=== PATIENT | male | born 1990 | race Caucasian/White ===

== ENCOUNTER 2017-03-12 08:21 | Day surgery (SDC) | payer BC, SELFPAY ==
[2017-03-12] VITALS (21 sets, daily range): BP systolic 105–151; BP diastolic 59–109; PULSE 58–88; RESP 16–20; TEMP 36.2–36.7; O2SAT 96–100; BMI 21.9
--- NOTE | 2017-03-12 08:30 | IR_ITS ---
CARDIAC CATHETERIZATION DATE OF CATHETERIZATION:03/12/2017 1:01 PM PROCEDURES: 1. Left heart catheterization 2. Left ventriculogram 3. Selective coronary angiogram 4. Drug-eluting stent deployment to the ostial proximal LAD INDICATION FOR TEST: 1. Angina pectoris class III 2. 2 antianginal medications including Norvasc and metoprolol 3. History of myocardial infarction 4. History of coronary artery disease Informed consent was obtained prior to the procedure. COMPLICATIONS: None ESTIMATED BLOOD LOSS: Less than 10 ml. TECHNIQUE: One percent lidocaine used to anesthetize the right anterior aspect of the wrist. The right radial artery was accessed via the Seldinger technique. A 6 Cambodian sheath was placed in the right radial artery. 2.5 mg of verapamil, 800 mcg of nitroglycerin and 5000 U Heparin were given through the arterial sheath. The trap catheter was also used to perform left heart catheterization left ventriculogram and selective coronary angiogram. At the end of the procedure an additional 2000 units of heparin was administered intravenously and a JL 3.5 guide catheter was used intubate the left main artery. Using fluoroscopic guidance a choice PT extra-support wire was used to traverse the proximal LAD stenosis. A 3 mm x 30 mm resolute Kim stent was placed in the proximal segment and deployed at 18 rober reducing the stenosis to less than 10%. The ostium was not catheter should appropriately therefore an additional 3 mm x 8 mm resolute Daryn stent was deployed at 20 rober in the ostium reducing the stenosis to less than 10%. Excellent angiographic results were obtained with a total contrast amount of 20 cc. At the end of the procedure the sheath was removed good hemostasis was achieved using TR banding patient transferred to the postop holding area in stable condition ANGIOGRAPHIC RESULTS: 1. The left main artery normal 2. The left anterior descending artery has an ostial 30% stenosis followed by a proximal 90% stenosis. Immediately distal to the first septal research quality assurance analyst are 2 contiguous stents which extended throughout the mid segment. The proximal portion of the first stent has 50-60% in-stent restenosis. 3. The circumflex artery nondominant and has mild 10% stenoses 4. The right coronary artery is a dominant vessel and occluded after the RV marginal branch with the distal vessel filling via left to right collaterals 5. The [place] ventriculogram reveals mild left ventricular dilatation estimated ejection fraction 45% 6. The left ventricular end-diastolic pressure 20 mmHg IMPRESSION: 1. Critical 2 vessel coronary artery disease as described above 2. Excessive stenting of the ostial proximal LAD critical disease reduced to less than 10% with 2 drug-eluting stents 3. Mild left ventricular dysfunction and dilatation 4. Elevated LVEDP PLAN: 1. Continue Brilinta and aspirin 2. LDL less than 55 3. Patient will be kept overnight and given IV fluids in order to reduce his risk of contrast nephropathy 4. Cardiac rehabilitation 5. Avoidance of tobacco products 6. Strongly encourage patient to follow-up with his pediatric acute care unit nurse as soon as possible
[2017-03-12 09:02] LABS: Basophils # 0.1 K/mm3 (0-0.2); Eosinophils # 0.2 K/mm3 (0.0-0.4); Eosinophils % 2.2 % (0.1-12.0); Hematocrit 37.7 % (42.0-52.0); Hemoglobin 12.2 g/dL (14.1-18.0); Lymphocytes # 2.9 K/mm3 (0.7-4.5); Lymphocytes % 34.3 K/mm3 (10-50); Mean Corpuscular HGB Conc 32.5 g/dL (31.8-35.4); Mean Corpuscular Hemoglobin 27.8 pg (27.0-31.2); Mean Corpuscular Volume 85.4 fl (80-94); Mean Platelet Volume 6.8 fl (7.4-10.4); Monocytes # 0.5 K/mm3 (0.1-1.0); Monocytes % 5.8 % (1.7-9.3); Neutrophils # 4.8 K/mm3 (1.8-7.8); Neutrophils % 56.6 % (37.0-80.0); Platelet Count 423 K/mm3 (142-424); Red Blood Count 4.41 M/mm3 (4.60-6.20); Red Cell Distribution Width 12.7 % (11.5-17.5); White Blood Count 8.5 K/mm3 (4.8-10.8)
[2017-03-12 09:09] LABS: Anion Gap 9.7 mEq/L (5-15); Blood Urea Nitrogen 23 mg/dL (7-18); Carbon Dioxide 27 mmol/L (21.0-32.0); Chloride 106 mmol/L (98-107); Creatinine Clearance Estimated 26 mg/ml (0-300); Estimated Glomerular Filt Rate 20 ml/min (>60); GFR (African American) 24 ML/MIN (>60); Glucose 93 mg/dL (74-106); Potassium 3.7 mmoL/L (3.5-5.1); Sodium 139 mmol/L (136-145)
[2017-03-12 09:15] LABS: Creatinine,Serum 3.67 mg/dL (0.70-1.30)
[2017-03-12 15:17] LABS: CATHL Activated Clotting Time 261 SEC (74-125)
[2017-03-12 15:18] LABS: CATHL Activated Clotting Time 262 SEC (74-125)
--- NOTE | 2017-03-12 21:51 | PC.NURSE ---
UPON RECEIVING PT, FOUND HIM TO BE ALERT AND ORIENTED X4. R RADIAL CATH SITE DRESSING C/D/I, RADIAL PULSES EQUAL WITH < 3 SEC CAP REFILL BILATERALLY. NO C/O ANY PAIN, PT IS INDEPDENT. DISCUSSED SAFETY AND CALL LIGHT USE. PT AGREED TO RING FOR ANY NEEDS. NS INFUSING AT 100ml/hr WITH NO PROBLEMS IDENTIFIED, SITE APPEARS W/O ERYTHEMA OR INFILTRATION. WILL CONTINUE TO MONITOR.
[2017-03-13] VITALS (7 sets, daily range): BP systolic 106–114; BP diastolic 55–78; PULSE 50–77; RESP 17–18; TEMP 36.2–36.8; O2SAT 97–99
--- NOTE | 2017-03-13 01:02 | PC.NURSE ---
In to check pt, he is sleeping with even and unlabored respirations. cath site dressing remains c/d/i. No s/s of any distress, will continue to monitor.
--- NOTE | 2017-03-13 06:31 | PC.NURSE ---
Pt rested well with no problems identified. iv fluids infusing well with no s/s of erythema or infiltration, vss and close in number. No c/o chest pain or any pain. r radial site dressing remains c/d/i. pt remained safe this shift
[2017-03-13 08:12] LABS: Anion Gap 10.4 mEq/L (5-15); Blood Urea Nitrogen 30 mg/dL (7-18); Carbon Dioxide 23 mmol/L (21.0-32.0); Chloride 112 mmol/L (98-107); Creatinine Clearance Estimated 26 mg/ml (0-300); Estimated Glomerular Filt Rate 19 ml/min (>60); GFR (African American) 24 ML/MIN (>60); Glucose 108 mg/dL (74-106); Potassium 4.4 mmoL/L (3.5-5.1); Sodium 141 mmol/L (136-145)
[2017-03-13 08:22] LABS: Creatinine,Serum 3.75 mg/dL (0.70-1.30)
--- NOTE | 2017-03-27 11:02 | PC.NURSE ---
post procedure call made, pt did not answer, message left for pt to call the hospital with any questions/concerns
== END 2017-03-13 10:00 | disposition home or self-care (01) ==
PROVIDERS: Family Provider Family Medicine; PCP Family Medicine; Visit Provider Internal Medicine
DX: I25.119 Atherosclerotic heart disease of native coronary artery with unspecified angina pectoris (principal); Z72.0 Tobacco use; I25.2 Old myocardial infarction
CPT/HCPCS: 80048; 85025; 85347; 92928; 93458; 99152; C1725; C1769; C1876; C9600; J1644; Q9967

== ENCOUNTER → 2017-03-19 12:28 | Outpatient (CLI) | payer BC, SELFPAY | PROVIDERS: Family Provider Family Medicine; PCP Family Medicine; Visit Provider Physician Assistant | DX: E78.2 Mixed hyperlipidemia (principal); I51.5 Myocardial degeneration; I25.118 Atherosclerotic heart disease of native coronary artery with other forms of angina pectoris; R94.31 Abnormal electrocardiogram [ECG] [EKG]; R00.1 Bradycardia, unspecified; I25.2 Old myocardial infarction; I45.10 Unspecified right bundle-branch block; N05.9 Unspecified nephritic syndrome with unspecified morphologic changes; Z95.5 Presence of coronary angioplasty implant and graft ==

== ENCOUNTER 2017-03-25 11:04 | Outpatient (RCR) | payer BC, SELFPAY | END 2017-03-25 11:05 | disposition home or self-care (01) | LOC: PT 11:04 | PROVIDERS: Family Provider Family Medicine; PCP Family Medicine; Visit Provider Internal Medicine | DX: Z95.5 Presence of coronary angioplasty implant and graft (principal); I25.118 Atherosclerotic heart disease of native coronary artery with other forms of angina pectoris | CPT/HCPCS: 93798 ==

== ENCOUNTER → 2017-05-07 13:33 | Outpatient (CLI) | payer BC, SELFPAY ==
[2017-05-07 13:39] LABS: Microscopic, Urine URINE MICROSCOPIC (MICROSCOPIC)
[2017-05-07 13:59] LABS: Basophils # 0.1 K/mm3 (0-0.2); Basophils % 0.7 % (0.1-2.0); Eosinophils # 0.3 K/mm3 (0.0-0.4); Eosinophils % 2.9 % (0.1-12.0); Hematocrit 32.5 % (42.0-52.0); Hemoglobin 10.7 g/dL (14.1-18.0); Lymphocytes # 2.5 K/mm3 (0.7-4.5); Lymphocytes % 27.2 K/mm3 (10-50); Mean Corpuscular HGB Conc 32.8 g/dL (31.8-35.4); Mean Corpuscular Hemoglobin 28.2 pg (27.0-31.2); Mean Platelet Volume 7.7 fl (7.4-10.4); Monocytes # 0.5 K/mm3 (0.1-1.0); Monocytes % 5.5 % (1.7-9.3); Neutrophils # 5.9 K/mm3 (1.8-7.8); Neutrophils % 63.7 % (37.0-80.0); Platelet Count 298 K/mm3 (142-424); Red Blood Count 3.77 M/mm3 (4.60-6.20); Red Cell Distribution Width 13.1 % (11.5-17.5); White Blood Count 9.2 K/mm3 (4.8-10.8)
[2017-05-07 14:07] LABS: Alanine Aminotransferase 32 U/L (12-78); Albumin Level 2.6 gm/dL (3.4-5.0); Alkaline Phosphatase 77 U/L (46-116); Anion Gap 11.2 mEq/L (5-15); Aspartate Amino Transferase 44 U/L (15-37); Bilirubin,Direct 0.1 mg/dL (0.0-0.2); Bilirubin,Total 0.2 mg/dL (0.2-1.0); Blood Urea Nitrogen 26 mg/dL (7-18); Carbon Dioxide 25 mmol/L (21.0-32.0); Chloride 109 mmol/L (98-107); Chol/HDL Ratio 5.5 (1-3.5); Cholesterol 244 mg/dL (140-200); Estimated Glomerular Filt Rate 19 ml/min (>60); GFR (African American) 24 ML/MIN (>60); Glucose 74 mg/dL (74-106); HDL Cholesterol 44 mg/dL (27-67); LDL Cholesterol 184 mg/dL (0-130); Potassium 4.2 mmoL/L (3.5-5.1); Sodium 141 mmol/L (136-145); Total Protein,Serum 5.9 gm/dL (6.4-8.2); Triglycerides 81 mg/dL (30-200); VLDL Cholesterol 16 mg/dL (0-40)
[2017-05-07 14:13] LABS: Appearance,Urine CLEAR (Clear); Bilirubin,Urine Negative (Negative); Blood, Urine 2+ (Negative); Color,Urine YELLOW (Yellow); Glucose,Urine (UA) Negative (Negative); Ketones,Urine Negative (Negative); Leukocyte Esterase,Urine Negative (Negative); Nitrate,Urine Negative (Negative); Protein,Urine 3+ (Negative); Urobilinogen,Urine 0.2 EU/dl (0.2)
[2017-05-07 14:22] LABS: Creatinine,Serum 3.76 mg/dL (0.70-1.30)
[2017-05-07 14:41] LABS: Creatinine,Urine Random 57 mg/dL (20-320)
[2017-05-07 14:42] LABS: Bacteria,Urine 1+ /lpf; Squamous Epithelial Cell,Urine Occasional #/hpf (0-5)
[2017-05-07 15:31] LABS: Total Protein,Urine Random 400.2 mg/dL (0.0-11.9)
[2017-05-07 15:35] LABS: Albumin Level 2.6 gm/dL (3.4-5.0); Anion Gap 11.2 mEq/L (5-15); Blood Urea Nitrogen 26 mg/dL (7-18); Calcium 8.3 mg/dL (8.5-10.1); Carbon Dioxide 26 mmol/L (21.0-32.0); Chloride 109 mmol/L (98-107); Estimated Glomerular Filt Rate 19 ml/min (>60); GFR (African American) 23 ML/MIN (>60); Glucose 71 mg/dL (74-106); Phosphorous 3.4 mg/dL (2.4-4.9); Potassium 4.2 mmoL/L (3.5-5.1); Sodium 142 mmol/L (136-145)
[2017-05-08 11:54] LABS: Vitamin D 25 Hydroxy 13.2 ng/mL (30.0-100.0)
[2017-05-09 07:04] LABS: Parathyroid Hormone Intact 132 pg/mL (15-65)
== END ==
PROVIDERS: Internal Medicine Nephrology; PCP Family Medicine; Visit Provider Internal Medicine
DX: E78.2 Mixed hyperlipidemia (principal); I15.1 Hypertension secondary to other renal disorders; I25.118 Atherosclerotic heart disease of native coronary artery with other forms of angina pectoris; N05.9 Unspecified nephritic syndrome with unspecified morphologic changes
CPT/HCPCS: 36415; 80048; 80061; 80069; 80076; 81001; 82570; 82652; 83970; 84155; 85025

== ENCOUNTER → 2017-05-08 14:33 | Outpatient (POV) | payer BC, SELFPAY | PROVIDERS: Family Provider Family Medicine; PCP Family Medicine; Visit Provider Internal Medicine Nephrology | DX: Z00.00 Encounter for general adult medical examination without abnormal findings (principal) ==

== ENCOUNTER → 2018-01-12 11:54 | Outpatient (CLI) | payer BC, SELFPAY ==
[2018-01-12 11:59] LABS: Microscopic, Urine URINE MICROSCOPIC (MICROSCOPIC)
[2018-01-12 12:16] LABS: Appearance,Urine CLEAR (Clear); Bilirubin,Urine Negative (Negative); Blood, Urine 2+ (Negative); Color,Urine YELLOW (Yellow); Glucose,Urine (UA) Negative (Negative); Ketones,Urine Negative (Negative); Leukocyte Esterase,Urine Negative (Negative); Nitrate,Urine Negative (Negative); Protein,Urine 3+ (Negative)
[2018-01-12 12:20] LABS: Basophils % 0.6 % (0.1-2.0); Eosinophils # 0.2 K/mm3 (0.0-0.4); Eosinophils % 3.2 % (0.1-12.0); Hemoglobin 12.8 g/dL (14.1-18.0); Lymphocytes # 2.8 K/mm3 (0.7-4.5); Lymphocytes % 40.2 K/mm3 (10-50); Mean Corpuscular Hemoglobin 27.3 pg (27.0-31.2); Mean Corpuscular Volume 85.3 fl (80-94); Mean Platelet Volume 7.1 fl (7.4-10.4); Monocytes # 0.4 K/mm3 (0.1-1.0); Monocytes % 5.5 % (1.7-9.3); Neutrophils # 3.5 K/mm3 (1.8-7.8); Neutrophils % 50.5 % (37.0-80.0); Platelet Count 342 K/mm3 (142-424); Red Blood Count 4.68 M/mm3 (4.60-6.20); Red Cell Distribution Width 13.6 % (11.5-17.5); White Blood Count 6.9 K/mm3 (4.8-10.8)
[2018-01-12 13:31] LABS: Squamous Epithelial Cell,Urine Occasional #/hpf (0-5); WBC,Urine Occasional #/hpf (0-3)
[2018-01-12 19:36] LABS: Albumin Level 3.2 gm/dL (3.4-5.0); Anion Gap 12.1 mEq/L (5-15); Blood Urea Nitrogen 24 mg/dL (7-18); Calcium 8.5 mg/dL (8.5-10.1); Carbon Dioxide 29 mmol/L (21.0-32.0); Chloride 106 mmol/L (98-107); Creatinine,Serum 3.39 mg/dL (0.70-1.30); Estimated Glomerular Filt Rate 22 ml/min (>60); GFR (African American) 26 ML/MIN (>60); Glucose 90 mg/dL (74-106); Magnesium 1.9 mg/dL (1.4-2.2); Phosphorous 3.3 mg/dL (2.4-4.9); Potassium 5.1 mmoL/L (3.5-5.1); Sodium 142 mmol/L (136-145)
== END ==
PROVIDERS: Visit Provider Internal Medicine Nephrology
DX: Z94.0 Kidney transplant status (principal)
CPT/HCPCS: 36415; 80069; 81001; 83735; 85025

== ENCOUNTER → 2018-06-15 14:14 | Outpatient (CLI) | payer BC, SELFPAY ==
[2018-06-15 14:43] LABS: Basophils # 0.1 K/mm3 (0-0.2); Basophils % 0.6 % (0.1-2.0); Eosinophils # 0.1 K/mm3 (0.0-0.4); Eosinophils % 0.4 % (0.1-12.0); Hematocrit 37.4 % (42.0-52.0); Hemoglobin 13.3 g/dL (14.1-18.0); Lymphocytes # 4.4 K/mm3 (0.7-4.5); Lymphocytes % 29.4 % (10-50); Mean Corpuscular HGB Conc 35.5 g/dL (31.8-35.4); Mean Corpuscular Hemoglobin 28.2 pg (27.0-31.2); Mean Corpuscular Volume 79.3 fl (80-94); Mean Platelet Volume 7.2 fl (7.4-10.4); Monocytes # 0.8 K/mm3 (0.1-1.0); Monocytes % 5.4 % (1.7-9.3); Neutrophils # 9.6 K/mm3 (1.8-7.8); Neutrophils % 64.3 % (37.0-80.0); Platelet Count 357 K/mm3 (142-424); Red Blood Count 4.71 M/mm3 (4.60-6.20); Red Cell Distribution Width 13.1 % (11.5-17.5); White Blood Count 14.9 K/mm3 (4.8-10.8)
[2018-06-15 15:24] LABS: Albumin Level 3.6 gm/dL (3.4-5.0); Anion Gap 17.4 mEq/L (5-15); Blood Urea Nitrogen 34 mg/dL (7-18); Calcium 9.3 mg/dL (8.5-10.1); Carbon Dioxide 22 mmol/L (21.0-32.0); Chloride 107 mmol/L (98-107); Estimated Glomerular Filt Rate 18 ml/min (>60); GFR (African American) 22 ML/MIN (>60); Glucose 128 mg/dL (74-106); Magnesium 1.7 mg/dL (1.4-2.2); Phosphorous 3.8 mg/dL (2.4-4.9); Potassium 3.4 mmoL/L (3.5-5.1); Sodium 143 mmol/L (136-145)
[2018-06-15 15:42] LABS: Creatinine,Serum 4.03 mg/dL (0.70-1.30)
== END ==
PROVIDERS: Visit Provider Internal Medicine Nephrology
DX: Z94.0 Kidney transplant status (principal); E78.5 Hyperlipidemia, unspecified; N18.9 Chronic kidney disease, unspecified; I25.10 Atherosclerotic heart disease of native coronary artery without angina pectoris
CPT/HCPCS: 36415; 80069; 83735; 85025

== ENCOUNTER → 2018-09-23 14:15 | Outpatient (CLI) | payer BC, SELFPAY ==
[2018-09-23 14:23] LABS: Microscopic, Urine URINE MICROSCOPIC (MICROSCOPIC)
[2018-09-23 14:37] LABS: Appearance,Urine CLEAR (Clear); Bilirubin,Urine Negative (Negative); Blood, Urine 1+ (Negative); Color,Urine YELLOW (Yellow); Glucose,Urine (UA) Negative (Negative); Ketones,Urine Negative (Negative); Leukocyte Esterase,Urine Negative (Negative); Nitrate,Urine Negative (Negative); Protein,Urine 3+ (Negative); Urobilinogen,Urine 0.2 EU/dl (0.2)
[2018-09-23 14:49] LABS: Squamous Epithelial Cell,Urine Occasional #/hpf (0-5); WBC,Urine Occasional #/hpf (0-3)
[2018-09-23 14:50] LABS: Bacteria,Urine Trace /lpf
[2018-09-23 14:59] LABS: Basophils # 0.1 K/mm3 (0-0.2); Basophils % 0.7 % (0.1-2.0); Eosinophils # 0.1 K/mm3 (0.0-0.4); Eosinophils % 1.2 % (0.1-12.0); Hematocrit 38.4 % (42.0-52.0); Hemoglobin 12.1 g/dL (14.1-18.0); Lymphocytes # 2.4 K/mm3 (0.7-4.5); Lymphocytes % 27.8 % (10-50); Mean Corpuscular HGB Conc 31.6 g/dL (31.8-35.4); Mean Corpuscular Hemoglobin 25.6 pg (27.0-31.2); Mean Corpuscular Volume 80.8 fl (80-94); Mean Platelet Volume 6.7 fl (7.4-10.4); Monocytes # 0.4 K/mm3 (0.1-1.0); Monocytes % 5.1 % (1.7-9.3); Neutrophils # 5.5 K/mm3 (1.8-7.8); Neutrophils % 65.2 % (37.0-80.0); Platelet Count 324 K/mm3 (142-424); Red Blood Count 4.75 M/mm3 (4.60-6.20); Red Cell Distribution Width 13.2 % (11.5-17.5); White Blood Count 8.5 K/mm3 (4.8-10.8)
[2018-09-23 16:44] LABS: Albumin Level 3.2 gm/dL (3.4-5.0); Anion Gap 14.6 mEq/L (5-15); Blood Urea Nitrogen 28 mg/dL (7-18); Carbon Dioxide 26 mmol/L (21.0-32.0); Chloride 106 mmol/L (98-107); Estimated Glomerular Filt Rate 19 ml/min (>60); GFR (African American) 23 ML/MIN (>60); Glucose 134 mg/dL (74-106); Magnesium 1.9 mg/dL (1.4-2.2); Phosphorous 2.5 mg/dL (2.4-4.9); Potassium 4.6 mmoL/L (3.5-5.1); Sodium 142 mmol/L (136-145)
[2018-09-23 17:55] LABS: Creatinine,Serum 3.86 mg/dL (0.70-1.30)
== END ==
PROVIDERS: Visit Provider Internal Medicine Nephrology
DX: Z94.0 Kidney transplant status (principal)
CPT/HCPCS: 36415; 80069; 81001; 83735; 85025

== ENCOUNTER → 2018-12-22 14:35 | Outpatient (CLI) | payer BC, SELFPAY ==
[2018-12-22 15:06] LABS: Basophils # 0.1 K/mm3 (0-0.2); Basophils % 1.2 % (0.1-2.0); Eosinophils # 0.1 K/mm3 (0.0-0.4); Eosinophils % 1.6 % (0.1-12.0); Hematocrit 40.1 % (42.0-52.0); Hemoglobin 12.6 g/dL (14.1-18.0); Lymphocytes # 3.7 K/mm3 (0.7-4.5); Lymphocytes % 53.8 % (10-50); Mean Corpuscular HGB Conc 31.4 g/dL (31.8-35.4); Mean Corpuscular Hemoglobin 26.6 pg (27.0-31.2); Mean Corpuscular Volume 84.7 fl (80-94); Mean Platelet Volume 7.6 fl (7.4-10.4); Monocytes # 0.4 K/mm3 (0.1-1.0); Monocytes % 6.2 % (1.7-9.3); Neutrophils # 2.6 K/mm3 (1.8-7.8); Neutrophils % 37.2 % (37.0-80.0); Platelet Count 292 K/mm3 (142-424); Red Blood Count 4.74 M/mm3 (4.60-6.20); Red Cell Distribution Width 14.2 % (11.5-17.5); White Blood Count 6.9 K/mm3 (4.8-10.8)
[2018-12-22 15:08] LABS: MANUAL DIFFERENTIAL MANUAL DIFFERENTIAL (MANUAL DIFF)
[2018-12-22 15:50] LABS: Eosinophils % 2 % (0-3); Hypochromasia 1+; Lymphocytes % 57 % (10-50); Monocytes % 5 % (2-9); Neutrophils % 36 % (42-76); Platelet Estimate Normal; Total Cells Counted 100
[2018-12-22 16:17] LABS: Albumin Level 3.6 gm/dL (3.4-5.0); Anion Gap 11.5 mEq/L (5-15); Blood Urea Nitrogen 29 mg/dL (7-18); Carbon Dioxide 27 mmol/L (21.0-32.0); Chloride 107 mmol/L (98-107); Estimated Glomerular Filt Rate 17 ml/min (>60); GFR (African American) 20 ML/MIN (>60); Glucose 81 mg/dL (74-106); Magnesium 1.9 mg/dL (1.4-2.2); Phosphorous 3.6 mg/dL (2.4-4.9); Potassium 4.5 mmoL/L (3.5-5.1); Sodium 141 mmol/L (136-145)
[2018-12-22 17:02] LABS: Creatinine,Serum 4.21 mg/dL (0.70-1.30)
== END ==
PROVIDERS: Visit Provider Internal Medicine Nephrology
DX: Z94.0 Kidney transplant status (principal)
CPT/HCPCS: 36415; 80069; 83735; 85007; 85025

== ENCOUNTER → 2019-04-22 15:54 | Outpatient (CLI) | payer BC, SELFPAY ==
--- NOTE | 2019-04-22 15:57 | XR_ITS ---
PROCEDURE: XR CHEST 2V CLINICAL HISTORY: COUGH Cough and congestion COMPARISON: CXR CHEST(2 VIEWS-NOT PORTABLE) from 09/01/2013 FINDINGS: The cardiomediastinal silhouette and pulmonary vascularity are within normal limits. The lungs are clear without infiltrates, suspicious nodules, or pleural effusions. There is minimal midthoracic curvature convex right. Coronary artery stent or calcification noted anteriorly IMPRESSION: No acute findings. Dictated by: Zhou Raya MD 04/22/2019 17:12 Electronically signed by Zhou Raya MD in [place] 04/22/2019 17:12
== END ==
PROVIDERS: PCP Physician Assistant; Visit Provider Physician Assistant
DX: R05 Cough (principal)
CPT/HCPCS: 71046

== ENCOUNTER → 2019-11-27 10:47 | Outpatient (CLI) | payer BC, SELFPAY ==
[2019-11-27 11:07] LABS: Basophils # 0.1 K/mm3 (0-0.2); Basophils % 1.2 % (0.1-2.0); Eosinophils # 0.2 K/mm3 (0.0-0.4); Eosinophils % 2.8 % (0.1-12.0); Hematocrit 31.8 % (42.0-52.0); Hemoglobin 10.7 g/dL (14.1-18.0); Lymphocytes # 3.3 K/mm3 (0.7-4.5); Mean Corpuscular HGB Conc 33.6 g/dL (31.8-35.4); Mean Corpuscular Hemoglobin 29.5 pg (27.0-31.2); Mean Corpuscular Volume 87.9 fl (80-94); Mean Platelet Volume 7.6 fl (7.4-10.4); Monocytes # 0.4 K/mm3 (0.1-1.0); Monocytes % 6.2 % (1.7-9.3); Neutrophils # 2.6 K/mm3 (1.8-7.8); Neutrophils % 39.8 % (37.0-80.0); Platelet Count 265 K/mm3 (142-424); Red Blood Count 3.62 M/mm3 (4.60-6.20); Red Cell Distribution Width 13.7 % (11.5-17.5); White Blood Count 6.5 K/mm3 (4.8-10.8)
[2019-11-27 11:13] LABS: MANUAL DIFFERENTIAL MANUAL DIFFERENTIAL (MANUAL DIFF)
[2019-11-27 15:06] LABS: Chloride 110 mmol/L (98-107)
[2019-11-27 15:07] LABS: Albumin Level 3.2 g/dl (3.5-5.0); Potassium 4.5 mmoL/L (3.5-5.1); Sodium 139 mmol/L (136-145)
[2019-11-27 15:09] LABS: Blood Urea Nitrogen 75 mg/dl (9-20); Estimated Glomerular Filt Rate 6 ml/min (>60); GFR (African American) 7 ML/MIN (>60)
[2019-11-27 15:10] LABS: Anion Gap 17.5 mEq/L (5-15); Carbon Dioxide 16 mmol/L (22.0-30.0); Glucose 117 mg/dl (74-100); Magnesium 1.8 mg/dl (1.6-2.3); Phosphorous 7.6 mg/dl (2.5-4.5)
[2019-11-27 15:19] LABS: Lymphocytes % 50 % (10-50); Monocytes % 5 % (2-9); Neutrophils % 45 % (42-76); Platelet Estimate Normal; RBC Morphology Normal; Total Cells Counted 100
[2019-11-27 15:43] LABS: Calcium 6.7 mg/dl (8.4-10.2)
== END ==
PROVIDERS: Visit Provider Internal Medicine Nephrology
DX: Z94.0 Kidney transplant status (principal)
CPT/HCPCS: 36415; 80069; 83735; 85007; 85025

== ENCOUNTER → 2019-12-21 13:15 | Outpatient (CLI) | payer BC, SELFPAY ==
--- NOTE | 2019-12-21 13:16 | CA_ITS ---
APPROVED REPORT EXAM: Comprehensive 2D, Doppler, and color-flow Echocardiogram Senior Clinical Project Manager: Linda Hirsch RDCS Ht: 5 ft 6 in Wt: 150lbs BSA: 1.77 BP: 123/79 mmHg Indications: CAD CM M-Mode Dimensions RVDd 3.00 cm (0.9-2.6) LA Diam 3.50 cm (1.9-4.0) LVDd 5.70 cm (3.5-5.7) Ao Diam 3.30 cm (2.0-3.7) LVDs 3.80 cm (3.5-5.7) AV Cusp 2.40 cm (1.5-2.6) IVSd 1.10 cm (0.6-1.1) PWd 1.20 cm (0.6-1.1) EF (Teich) 61.30% FS 33.30% EDV (Teich) 160.00 mL ESV (Teich) 62.00 mL LV Diastology E/A Ratio 1.4 MED E' 7.51 (< 7 cm/sec) E'/MED E' Ratio 7.50 (>14) LAT E' 11.60 (<10 cm/sec) E/LAT E' Ratio 4.90 (>14) Mitral Valve MV E Max Conrado. 56.60 (40-130 cm/s) MV A Velocity 39.80 (40-130 cm/s) E/A Ratio 1.40 Left Ventricle Left atrium is normal size, left ventricle is normal size, there is no concentric left ventricular hypertrophy, visually estimated ejection fraction of 55% with no regional wall motion abnormality. Diastolic parameters are within normal range. Right Ventricle Right atrium and right ventricular normal size and contractility. Aortic Valve Aortic valve is grossly normal, there is no aortic stenosis or aortic insufficiency. Mitral Valve Mitral valve is minimally thickened, there is no mitral stenosis, there is mild mitral regurgitation. Tricuspid Valve Tricuspid valve is grossly normal, there is mild tricuspid regurgitation, tricuspid regurgitation jet velocity is inadequate for calculation of the right ventricular systolic pressure. Pulmonic Valve Pulmonic valve is poorly visualized. Great Vessels Aortic root is normal size. Pericardium No significant pericardial effusion noted. Conclusion 1. Normal left ventricular size, preserved left ventricular systolic function, visually estimated ejection fraction 55% with no regional wall motion abnormality, diastolic parameters are within normal range. 2. Mild mitral and tricuspid regurgitation. 3. No significant pericardial effusion noted. Electronically signed by : Jack Whitman, 12/21/2019 20:40:34
== END ==
PROVIDERS: PCP Family Medicine; Visit Provider Internal Medicine
DX: R94.31 Abnormal electrocardiogram [ECG] [EKG] (principal); I10 Essential (primary) hypertension; I25.10 Atherosclerotic heart disease of native coronary artery without angina pectoris; I25.2 Old myocardial infarction; I25.5 Ischemic cardiomyopathy; I45.10 Unspecified right bundle-branch block; N05.9 Unspecified nephritic syndrome with unspecified morphologic changes; E78.5 Hyperlipidemia, unspecified; Z95.5 Presence of coronary angioplasty implant and graft
CPT/HCPCS: 93306

== ENCOUNTER → 2020-02-16 12:10 | Outpatient (CLI) | payer BC, SELFPAY ==
[2020-02-16 12:17] LABS: Microscopic, Urine URINE MICROSCOPIC (MICROSCOPIC)
[2020-02-16 12:34] LABS: Appearance,Urine CLEAR (Clear); Bilirubin,Urine Negative (Negative); Blood, Urine TRACE-I (Negative); Color,Urine YELLOW (Yellow); Glucose,Urine (UA) Negative (Negative); Ketones,Urine Negative (Negative); Leukocyte Esterase,Urine Negative (Negative); Nitrate,Urine Negative (Negative); Protein,Urine 3+ (Negative); Specific Gravity, Urine >= 1.030 (1.005-1.030); Urobilinogen,Urine 0.2 EU/dl (0.2)
[2020-02-16 12:36] LABS: Basophils # 0.1 K/mm3 (0-0.2); Basophils % 0.6 % (0.1-2.0); Eosinophils # 0.1 K/mm3 (0.0-0.4); Eosinophils % 1.1 % (0.1-12.0); Hematocrit 33.6 % (42.0-52.0); Hemoglobin 11.1 g/dL (14.1-18.0); Lymphocytes # 0.3 K/mm3 (0.7-4.5); Lymphocytes % 3.8 % (10-50); Mean Corpuscular HGB Conc 33.1 g/dL (31.8-35.4); Mean Corpuscular Hemoglobin 30.9 pg (27.0-31.2); Mean Corpuscular Volume 93.5 fl (80-94); Monocytes # 0.1 K/mm3 (0.1-1.0); Monocytes % 1.5 % (1.7-9.3); Neutrophils # 7.9 K/mm3 (1.8-7.8); Neutrophils % 92.9 % (37.0-80.0); Platelet Count 273 K/mm3 (142-424); Red Blood Count 3.59 M/mm3 (4.60-6.20); Red Cell Distribution Width 16.1 % (11.5-17.5); White Blood Count 8.5 K/mm3 (4.8-10.8)
[2020-02-16 12:47] LABS: MANUAL DIFFERENTIAL MANUAL DIFFERENTIAL (MANUAL DIFF)
[2020-02-16 13:35] LABS: Lymphocytes % 7 % (10-50); Monocytes % 3 % (2-9); Neutrophils % 90 % (42-76); Platelet Estimate Normal; RBC Morphology Normal; Total Cells Counted 100
[2020-02-16 15:59] LABS: Albumin Level 3.5 g/dl (3.5-5.0); Chloride 110 mmol/L (98-107); Potassium 5.2 mmoL/L (3.5-5.1); Sodium 139 mmol/L (136-145)
[2020-02-16 16:02] LABS: Anion Gap 12.2 mEq/L (5-15); Blood Urea Nitrogen 17 mg/dl (9-20); Calcium 9.1 mg/dl (8.4-10.2); Carbon Dioxide 22 mmol/L (22.0-30.0); Estimated Glomerular Filt Rate 65 ml/min (>60); GFR (African American) 78 ML/MIN (>60); Glucose 106 mg/dl (74-100); Phosphorous 2.7 mg/dl (2.5-4.5)
[2020-02-16 16:03] LABS: Magnesium 1.6 mg/dl (1.6-2.3)
== END ==
PROVIDERS: Visit Provider Internal Medicine Nephrology
DX: Z94.0 Kidney transplant status (principal)
CPT/HCPCS: 36415; 80069; 81001; 83735; 85007; 85025

== ENCOUNTER → 2020-04-18 13:21 | Outpatient (CLI) | payer BC, SELFPAY ==
[2020-04-18 13:24] LABS: Microscopic, Urine URINE MICROSCOPIC (MICROSCOPIC)
[2020-04-18 13:51] LABS: Appearance,Urine CLEAR (Clear); Bilirubin,Urine Negative (Negative); Blood, Urine TRACE-I (Negative); Color,Urine YELLOW (Yellow); Glucose,Urine (UA) Negative (Negative); Ketones,Urine Negative (Negative); Leukocyte Esterase,Urine Negative (Negative); Nitrate,Urine Negative (Negative); Protein,Urine 3+ (Negative); Specific Gravity, Urine 1.025 (1.005-1.030); Urobilinogen,Urine 0.2 EU/dl (0.2)
[2020-04-18 14:00] LABS: Squamous Epithelial Cell,Urine Occasional #/hpf (0-5)
[2020-04-18 14:18] LABS: Basophils # 0.1 K/mm3 (0-0.2); Eosinophils % 0.5 % (0.1-12.0); Hematocrit 34.2 % (42.0-52.0); Hemoglobin 11.4 g/dL (14.1-18.0); Lymphocytes # 0.5 K/mm3 (0.7-4.5); Mean Corpuscular HGB Conc 33.3 g/dL (31.8-35.4); Mean Corpuscular Hemoglobin 30.8 pg (27.0-31.2); Mean Corpuscular Volume 92.5 fl (80-94); Mean Platelet Volume 7.2 fl (7.4-10.4); Monocytes # 0.1 K/mm3 (0.1-1.0); Monocytes % 5.6 % (1.7-9.3); Neutrophils % 63.9 % (37.0-80.0); Platelet Count 329 K/mm3 (142-424); Red Cell Distribution Width 14.1 % (11.5-17.5)
[2020-04-18 14:36] LABS: White Blood Count 1.7 K/mm3 (4.8-10.8)
[2020-04-18 15:32] LABS: Albumin Level 3.7 g/dl (3.5-5.0); Anion Gap 9.7 mEq/L (5-15); Blood Urea Nitrogen 14 mg/dl (9-20); Calcium 9.3 mg/dl (8.4-10.2); Carbon Dioxide 25 mmol/L (22.0-30.0); Chloride 108 mmol/L (98-107); Estimated Glomerular Filt Rate 79 ml/min (>60); GFR (African American) 95 ML/MIN (>60); Glucose 104 mg/dl (74-100); Magnesium 1.5 mg/dl (1.6-2.3); Phosphorous 3.4 mg/dl (2.5-4.5); Potassium 4.7 mmoL/L (3.5-5.1); Sodium 138 mmol/L (136-145)
== END ==
PROVIDERS: Visit Provider Internal Medicine Nephrology
DX: Z94.0 Kidney transplant status (principal)
CPT/HCPCS: 36415; 80069; 81001; 83735; 85025

== ENCOUNTER → 2020-08-14 15:40 | Outpatient (CLI) | payer BC, SELFPAY ==
[2020-08-14 15:46] LABS: Microscopic, Urine URINE MICROSCOPIC (MICROSCOPIC)
[2020-08-14 16:51] LABS: Appearance,Urine CLEAR (Clear); Bilirubin,Urine Negative (Negative); Blood, Urine TRACE-I (Negative); Color,Urine YELLOW (Yellow); Glucose,Urine (UA) Negative (Negative); Ketones,Urine Negative (Negative); Leukocyte Esterase,Urine Negative (Negative); Nitrate,Urine Negative (Negative); Protein,Urine 3+ (Negative); Specific Gravity, Urine >= 1.030 (1.005-1.030); Urobilinogen,Urine 0.2 EU/dl (0.2)
[2020-08-14 16:57] LABS: Basophils % 0.9 % (0.1-2.0); Eosinophils # 0.1 K/mm3 (0.0-0.4); Eosinophils % 2.1 % (0.1-12.0); Hematocrit 35.3 % (42.0-52.0); Lymphocytes # 0.9 K/mm3 (0.7-4.5); Lymphocytes % 17.5 % (10-50); Mean Corpuscular HGB Conc 33.8 g/dL (31.8-35.4); Mean Corpuscular Hemoglobin 30.2 pg (27.0-31.2); Mean Corpuscular Volume 89.3 fl (80-94); Mean Platelet Volume 7.5 fl (7.4-10.4); Monocytes # 0.4 K/mm3 (0.1-1.0); Monocytes % 8.5 % (1.7-9.3); Neutrophils # 3.5 K/mm3 (1.8-7.8); Platelet Count 263 K/mm3 (142-424); Red Blood Count 3.96 M/mm3 (4.60-6.20); Red Cell Distribution Width 13.8 % (11.5-17.5); White Blood Count 4.9 K/mm3 (4.8-10.8)
[2020-08-14 17:19] LABS: Chloride 108 mmol/L (98-107); Sodium 139 mmol/L (136-145)
[2020-08-14 17:20] LABS: Albumin Level 3.6 g/dl (3.5-5.0); Potassium 4.4 mmoL/L (3.5-5.1)
[2020-08-14 17:22] LABS: Anion Gap 9.4 mEq/L (5-15); Blood Urea Nitrogen 20 mg/dl (9-20); Carbon Dioxide 26 mmol/L (22.0-30.0); Estimated Glomerular Filt Rate 71 ml/min (>60); GFR (African American) 86 ML/MIN (>60)
[2020-08-14 17:23] LABS: Calcium 8.8 mg/dl (8.4-10.2); Glucose 91 mg/dl (74-100); Magnesium 1.6 mg/dl (1.6-2.3)
== END ==
PROVIDERS: Visit Provider Internal Medicine Nephrology
DX: Z94.0 Kidney transplant status (principal); Z51.81 Encounter for therapeutic drug level monitoring
CPT/HCPCS: 36415; 80069; 81001; 83735; 85025

== ENCOUNTER → 2020-10-31 16:09 | Outpatient (CLI) | payer BC, SELFPAY ==
[2020-10-31 16:52] LABS: Basophils # 0.1 K/mm3 (0-0.2); Basophils % 1.7 % (0.1-2.0); Eosinophils # 0.2 K/mm3 (0.0-0.4); Eosinophils % 3.3 % (0.1-12.0); Hematocrit 42.3 % (42.0-52.0); Hemoglobin 14.3 g/dL (14.1-18.0); Lymphocytes # 1.1 K/mm3 (0.7-4.5); Lymphocytes % 19.6 % (10-50); Mean Corpuscular HGB Conc 33.9 g/dL (31.8-35.4); Mean Corpuscular Hemoglobin 29.8 pg (27.0-31.2); Mean Corpuscular Volume 87.9 fl (80-94); Mean Platelet Volume 7.7 fl (7.4-10.4); Monocytes # 0.4 K/mm3 (0.1-1.0); Monocytes % 6.8 % (1.7-9.3); Neutrophils # 3.8 K/mm3 (1.8-7.8); Neutrophils % 68.5 % (37.0-80.0); Platelet Count 311 K/mm3 (142-424); Red Blood Count 4.81 M/mm3 (4.60-6.20); Red Cell Distribution Width 13.9 % (11.5-17.5); White Blood Count 5.6 K/mm3 (4.8-10.8)
[2020-10-31 17:14] LABS: Albumin Level 3.4 g/dl (3.5-5.0); Anion Gap 10.8 mEq/L (5-15); Blood Urea Nitrogen 18 mg/dl (9-20); Carbon Dioxide 26 mmol/L (22.0-30.0); Chloride 106 mmol/L (98-107); Estimated Glomerular Filt Rate 78 ml/min (>60); GFR (African American) 94 ML/MIN (>60); Glucose 139 mg/dl (74-100); Magnesium 1.4 mg/dl (1.6-2.3); Potassium 4.8 mmoL/L (3.5-5.1); Sodium 138 mmol/L (136-145)
== END ==
PROVIDERS: Visit Provider Internal Medicine Nephrology
DX: Z94.0 Kidney transplant status (principal)
CPT/HCPCS: 36415; 80069; 83735; 85025

== ENCOUNTER → 2021-01-30 15:50 | Outpatient (CLI) | payer BC, SELFPAY ==
[2021-01-30 15:52] LABS: Microscopic, Urine URINE MICROSCOPIC (MICROSCOPIC)
[2021-01-30 16:47] LABS: Appearance,Urine CLEAR (Clear); Basophils % 0.6 % (0.1-2.0); Bilirubin,Urine Negative (Negative); Blood, Urine 2+ (Negative); Color,Urine YELLOW (Yellow); Eosinophils # 0.1 K/mm3 (0.0-0.4); Eosinophils % 2.1 % (0.1-12.0); Glucose,Urine (UA) TRACE (Negative); Hematocrit 39.4 % (42.0-52.0); Hemoglobin 13.4 g/dL (14.1-18.0); Ketones,Urine Negative (Negative); Leukocyte Esterase,Urine Negative (Negative); Lymphocytes # 1.3 K/mm3 (0.7-4.5); Lymphocytes % 18.7 % (10-50); Mean Corpuscular HGB Conc 34.1 g/dL (31.8-35.4); Mean Corpuscular Hemoglobin 29.7 pg (27.0-31.2); Mean Corpuscular Volume 87.1 fl (80-94); Mean Platelet Volume 7.5 fl (7.4-10.4); Monocytes # 0.5 K/mm3 (0.1-1.0); Monocytes % 7.4 % (1.7-9.3); Neutrophils % 71.3 % (37.0-80.0); Nitrate,Urine Negative (Negative); Platelet Count 315 K/mm3 (142-424); Protein,Urine 3+ (Negative); Red Blood Count 4.52 M/mm3 (4.60-6.20); Red Cell Distribution Width 14.5 % (11.5-17.5); Specific Gravity, Urine >= 1.030 (1.005-1.030); Urobilinogen,Urine 0.2 EU/dl (0.2)
[2021-01-30 16:52] LABS: Creatinine,Urine Random 182 mg/dL (Not Estab.)
[2021-01-30 17:04] LABS: Bacteria,Urine 3+ /lpf; Mucus,Urine 1+ /lpf; Squamous Epithelial Cell,Urine Occasional #/hpf (0-5)
[2021-01-30 17:20] LABS: Anion Gap 1.1 mEq/L (5-15); Blood Urea Nitrogen 19 mg/dl (9-20); Calcium 8.2 mg/dl (8.4-10.2); Carbon Dioxide 32 mmol/L (22.0-30.0); Chloride 107 mmol/L (98-107); Estimated Glomerular Filt Rate 64 ml/min (>60); GFR (African American) 78 ML/MIN (>60); Glucose 88 mg/dl (74-100); Magnesium 1.6 mg/dl (1.6-2.3); Phosphorous 3.3 mg/dl (2.5-4.5); Potassium 4.1 mmoL/L (3.5-5.1); Sodium 136 mmol/L (136-145)
== END ==
PROVIDERS: Visit Provider Internal Medicine Nephrology
DX: Z79.899 Other long term (current) drug therapy (principal)
CPT/HCPCS: 36415; 80069; 81001; 82570; 83735; 84155; 85025; 87086

== ENCOUNTER 2021-04-13 09:04 | Outpatient (CLI) | payer BC, SELFPAY ==
[2021-04-13] VITALS (9 sets, daily range): BP systolic 125–149; BP diastolic 68–81; PULSE 61–72; RESP 18; TEMP 36.4; O2SAT 99
== END 2021-04-13 11:47 | disposition home or self-care (01) ==
LOC: INF 09:04
PROVIDERS: PCP Family Medicine; Visit Provider Internal Medicine
DX: N04.9 Nephrotic syndrome with unspecified morphologic changes (principal); T86.19 Other complication of kidney transplant; N05.1 Unspecified nephritic syndrome with focal and segmental glomerular lesions; N06.1 Isolated proteinuria with focal and segmental glomerular lesions
CPT/HCPCS: 96365; 96366; J1459; J7060

== ENCOUNTER 2021-04-20 11:59 | Outpatient (CLI) | payer BC, SELFPAY ==
[2021-04-20] VITALS (9 sets, daily range): BP systolic 99–121; BP diastolic 52–70; PULSE 51–72; RESP 16–18; O2SAT 98
== END 2021-04-20 15:00 | disposition home or self-care (01) ==
LOC: INF 12:01
PROVIDERS: PCP Family Medicine; Visit Provider Internal Medicine
DX: Z94.0 Kidney transplant status (principal); N05.1 Unspecified nephritic syndrome with focal and segmental glomerular lesions; N04.9 Nephrotic syndrome with unspecified morphologic changes; N06.1 Isolated proteinuria with focal and segmental glomerular lesions
CPT/HCPCS: 96365; 96366; J1459; J7060

== ENCOUNTER 2021-04-27 08:20 | Outpatient (CLI) | payer BC, SELFPAY ==
[2021-04-27] VITALS (7 sets, daily range): BP systolic 119–143; BP diastolic 66–83; PULSE 55–74; RESP 18; O2SAT 99
== END 2021-04-27 14:40 | disposition home or self-care (01) ==
LOC: INF 08:20
PROVIDERS: Visit Provider Internal Medicine
DX: N05.1 Unspecified nephritic syndrome with focal and segmental glomerular lesions (principal); N04.9 Nephrotic syndrome with unspecified morphologic changes; N06.1 Isolated proteinuria with focal and segmental glomerular lesions; Z94.0 Kidney transplant status
CPT/HCPCS: 96365; 96366; J1459; J7060

== ENCOUNTER 2021-05-04 08:16 | Outpatient (CLI) | payer BC, SELFPAY ==
[2021-05-04] VITALS (10 sets, daily range): BP systolic 110–138; BP diastolic 59–94; PULSE 52–69; RESP 16; O2SAT 99
== END 2021-05-04 15:15 | disposition home or self-care (01) ==
LOC: INF 08:16
PROVIDERS: Visit Provider Internal Medicine
DX: N05.1 Unspecified nephritic syndrome with focal and segmental glomerular lesions (principal); N04.9 Nephrotic syndrome with unspecified morphologic changes; N06.1 Isolated proteinuria with focal and segmental glomerular lesions; Z94.0 Kidney transplant status
CPT/HCPCS: 96365; 96366; J1459; J7060

== ENCOUNTER 2021-05-11 06:15 | Outpatient (CLI) | payer BC, SELFPAY ==
[2021-05-11] VITALS (9 sets, daily range): BP systolic 130–152; BP diastolic 72–90; PULSE 56–74; RESP 16
== END 2021-05-11 15:10 | disposition home or self-care (01) ==
LOC: INF 06:15
PROVIDERS: Visit Provider Internal Medicine
DX: N05.1 Unspecified nephritic syndrome with focal and segmental glomerular lesions (principal); T86.19 Other complication of kidney transplant; N04.9 Nephrotic syndrome with unspecified morphologic changes; N06.1 Isolated proteinuria with focal and segmental glomerular lesions; Z94.0 Kidney transplant status
CPT/HCPCS: 96365; 96366; J1459; J7060

== ENCOUNTER 2021-05-14 14:54 | Emergency (ER) | payer BC, SELFPAY ==
--- NOTE | 2021-05-14 16:40 | HMH.EDUTC ---
[facility] [place] Clinical Impression: Exposure to COVID-19 virus, Viral syndrome Disposition: Home, Self-Care Condition on Discharge: Good Instructions: DI for COVID-19 (Suspected or Confirmed ), Preventing the Spread of Coronavirus Discharge Instructions Additional Instructions: Drink plenty of fluids. Take tylenol or ibuprofen for pain or fever. Take the medications as directed. Follow up with your regular doctor. GO TO THE ER FOR ANY WORSENING SYMPTOMS Quarantine until you know the results of your covid-19 test. Notify your school or workplace of your results and follow their instructions regarding return to work/school. Prescriptions: Ondansetron [Zofran 4mg ODT] 4 mg PO Q8HP PRN #20 tab PRN Reason: Nausea Transmission Status: [facility] Benzonatate [Benzonatate 100mg cap] 100 mg PO TIDP PRN #30 cap PRN Reason: Cough Transmission Status: [facility] by [facility] Referrals: Marybel Eaton MD [Primary Care Provider] - Forms: Work/School Release Time of Disposition: 17:49 Medical Decision Making - Medical Records Medical records reviewed: No: I reviewed the patient's medical records. - Jesús Inquiry Pt receiving controlled substance: No Vital Signs: 05/14/21 17:06 05/14/21 17:56 Temperature 98.1 F 98.1 F Temperature Source Oral Pulse Rate 74 Pulse Rate [Left] 74 Respiratory Rate 14 14 Blood Pressure 140/71 Blood Pressure [Right Arm] 140/71 Blood Pressure Mean [Right Arm] 94 02 Sat by Pulse Oximetry 99 - Lab Data Lab results reviewed: Yes: I reviewed the patient's lab results. [facility] [place] - General Stated complaint: covid test Time Seen by Provider: 05/14/21 16:40 - History of Present Illness Provider Complaint: He has been having chills and malaise for the past 2 days. - Related Data Home Medications Medication Instructions Recorded Confirmed aspirin 81 mg tablet,delayed 81 mg PO QDAY 03/11/17 05/11/21 release omeprazole 40 mg capsule,delayed 40 mg PO DAILY cap 07/09/17 05/11/21 release folic acid 1 mg tablet 1 mg PO DAILY 12/21/19 05/11/21 multivitamin-ferrous 1 tab PO DAILY 12/21/19 05/11/21 fumarate-folic acid 18 mg-400 mcg tablet polysaccharide iron complex 150 mg 150 mg PO DAILY 12/21/19 05/11/21 iron capsule lisinopril 40 mg tablet 40 mg PO DAILY 07/04/20 05/11/21 prednisone 20 mg tablet 5 mg PO DAILY tab 07/04/20 05/11/21 tacrolimus 1 mg tablet,extended 2 mg PO DAILY tab 07/04/20 05/11/21 release 24 hr mycophenolate sodium 180 mg 360 mg PO BID tab 01/02/21 05/11/21 tablet,delayed release Magnesium Chloride [Mag64] 2 tab PO TID 04/13/21 05/11/21 Ticagrelor [Brilinta] 90 mg PO BID 04/13/21 05/11/21 Metoprolol Succinate [Metoprolol 25 mg PO DAILY 04/20/21 05/11/21 Succinate 25mg Tablet*] Previous Rx's Medication Instructions Recorded nitroglycerin 0.4 mg sublingual 0.4 mg SUBLINGUAL Q5M PRN #30 tab 10/29/17 tablet ezetimibe 10 mg tablet 10 mg PO QDAY #30 tab 04/13/18 atorvastatin 80 mg tablet 80 mg PO QDAY #30 tab 03/30/19 Benzonatate [Benzonatate 100mg 100 mg PO TIDP PRN #30 cap 05/14/21 cap] Ondansetron [Zofran 4mg ODT] 4 mg PO Q8HP PRN #20 tab 05/14/21 Allergies Allergy/AdvReac Type Severity Reaction Status Date / Time povidone-iodine Allergy Intermediate I-RASH Verified 01/02/21 14:06 [From Betagen (povidone-iodine)] ethylene oxide (gas) Allergy Verified 05/14/21 17:11 obinutuzumab Allergy Verified 05/14/21 17:11 [facility] History - Hepatitis A Screen Attestation statement:: This patient has been screened for Hepatitis A risk factors. I have reviewed the patient's past medical history: Yes Medical History: Reports:: Coronary Artery Disease, Hyperlipidemia, Hypertension, Myocardial Infarction, Renal Disease Denies:: Cancer, Diabetes Mellitus Type 1, Diabetes Mellitus Type 2, Internal Pacemaker, MRSA, Seizures Comment: H
[2021-05-14 17:06] VITALS: BP 140/71; PULSE 74; RESP 14; TEMP 36.7; O2SAT 99; BMI 24.3
[2021-05-14 17:56] VITALS: BP 140/71; PULSE 74; RESP 14; TEMP 36.7
== END 2021-05-14 17:56 | disposition home or self-care (01) ==
PROVIDERS: Emergency Provider Nurse Practitioner Family; PCP Family Medicine
DX: R07.9 Chest pain, unspecified (principal); B34.9 Viral infection, unspecified; R06.00 Dyspnea, unspecified; R53.81 Other malaise; Z20.822 Contact with and (suspected) exposure to COVID-19; I13.2 Hypertensive heart and chronic kidney disease with heart failure and with stage 5 chronic kidney disease, or end stage renal disease; N18.6 End stage renal disease; I25.119 Atherosclerotic heart disease of native coronary artery with unspecified angina pectoris; I25.2 Old myocardial infarction; I45.10 Unspecified right bundle-branch block; E78.5 Hyperlipidemia, unspecified; E11.22 Type 2 diabetes mellitus with diabetic chronic kidney disease; N28.9 Disorder of kidney and ureter, unspecified; Z79.52 Long term (current) use of systemic steroids; Z79.82 Long term (current) use of aspirin; Z79.899 Other long term (current) drug therapy; Z88.8 Allergy status to other drugs, medicaments and biological substances; Z94.0 Kidney transplant status; Z95.5 Presence of coronary angioplasty implant and graft; Z99.2 Dependence on renal dialysis
CPT/HCPCS: 99283; C9803; U0003; U0005

== ENCOUNTER 2021-05-18 08:15 | Outpatient (CLI) | payer BC, SELFPAY ==
[2021-05-18] VITALS (9 sets, daily range): BP systolic 126–155; BP diastolic 56–78; PULSE 50–76; RESP 16; O2SAT 99
== END 2021-05-18 14:30 | disposition home or self-care (01) ==
LOC: INF 08:15
PROVIDERS: Visit Provider Internal Medicine
DX: T86.19 Other complication of kidney transplant (principal); N05.1 Unspecified nephritic syndrome with focal and segmental glomerular lesions; N04.9 Nephrotic syndrome with unspecified morphologic changes; N06.1 Isolated proteinuria with focal and segmental glomerular lesions; Z94.0 Kidney transplant status
CPT/HCPCS: 96365; 96366; J1459; J7060

== ENCOUNTER 2021-06-01 11:52 | Outpatient (CLI) | payer BC, SELFPAY ==
[2021-06-01] VITALS (9 sets, daily range): BP systolic 107–122; BP diastolic 58–81; PULSE 60–75; RESP 16–18; TEMP 36.4–36.5; O2SAT 97–99
== END 2021-06-01 14:40 | disposition home or self-care (01) ==
LOC: INF 11:54
PROVIDERS: PCP Family Medicine; Visit Provider Internal Medicine
DX: N05.1 Unspecified nephritic syndrome with focal and segmental glomerular lesions (principal); N04.9 Nephrotic syndrome with unspecified morphologic changes; N06.1 Isolated proteinuria with focal and segmental glomerular lesions; Z94.0 Kidney transplant status
CPT/HCPCS: 96365; 96366; J1459; J7060

== ENCOUNTER 2021-06-08 11:53 | Outpatient (CLI) | payer BC, SELFPAY ==
[2021-06-08] VITALS (8 sets, daily range): BP systolic 127–150; BP diastolic 55–76; PULSE 48–79; RESP 18; O2SAT 99
== END 2021-06-08 14:30 | disposition home or self-care (01) ==
LOC: INF 11:53
PROVIDERS: Visit Provider Internal Medicine
DX: N05.1 Unspecified nephritic syndrome with focal and segmental glomerular lesions (principal); N04.9 Nephrotic syndrome with unspecified morphologic changes; N06.1 Isolated proteinuria with focal and segmental glomerular lesions; Z94.0 Kidney transplant status
CPT/HCPCS: 96365; 96366; J1459; J7060

== ENCOUNTER 2021-06-15 11:45 | Outpatient (CLI) | payer BC, SELFPAY ==
[2021-06-15] VITALS (9 sets, daily range): BP systolic 112–137; BP diastolic 58–80; PULSE 51–91; RESP 16; O2SAT 100
== END 2021-06-15 14:50 | disposition home or self-care (01) ==
PROVIDERS: Visit Provider Internal Medicine
DX: N05.1 Unspecified nephritic syndrome with focal and segmental glomerular lesions (principal); N04.9 Nephrotic syndrome with unspecified morphologic changes; N06.1 Isolated proteinuria with focal and segmental glomerular lesions; Z94.0 Kidney transplant status
CPT/HCPCS: 96365; 96366; J1459; J7060

== ENCOUNTER 2021-06-22 11:56 | Outpatient (CLI) | payer BC, SELFPAY ==
[2021-06-22] VITALS (8 sets, daily range): BP systolic 107–121; BP diastolic 50–66; PULSE 53–86; RESP 18; O2SAT 100
== END 2021-06-22 15:15 | disposition home or self-care (01) ==
LOC: INF 11:57
PROVIDERS: PCP Family Medicine; Visit Provider Internal Medicine
DX: N05.1 Unspecified nephritic syndrome with focal and segmental glomerular lesions (principal); N04.9 Nephrotic syndrome with unspecified morphologic changes; N06.1 Isolated proteinuria with focal and segmental glomerular lesions; Z94.0 Kidney transplant status
CPT/HCPCS: 96365; 96366; J1459; J7060

== ENCOUNTER 2021-06-29 11:38 | Outpatient (CLI) | payer BC, SELFPAY ==
[2021-06-29] VITALS (10 sets, daily range): BP systolic 116–138; BP diastolic 55–90; PULSE 70–94; RESP 16; O2SAT 98
== END 2021-06-29 14:55 | disposition home or self-care (01) ==
LOC: INF 11:39
PROVIDERS: PCP Family Medicine; Visit Provider Internal Medicine
DX: N05.1 Unspecified nephritic syndrome with focal and segmental glomerular lesions (principal); N04.9 Nephrotic syndrome with unspecified morphologic changes; N06.1 Isolated proteinuria with focal and segmental glomerular lesions; Z94.0 Kidney transplant status
CPT/HCPCS: 96365; 96366; J1459; J7060

== ENCOUNTER 2021-07-06 11:21 | Outpatient (CLI) | payer BC, SELFPAY ==
[2021-07-06] VITALS (9 sets, daily range): BP systolic 124–149; BP diastolic 71–90; PULSE 56–86; RESP 16–18; O2SAT 100
== END 2021-07-06 14:45 | disposition home or self-care (01) ==
LOC: INF 11:22
PROVIDERS: Visit Provider Internal Medicine
DX: N05.1 Unspecified nephritic syndrome with focal and segmental glomerular lesions (principal); N04.9 Nephrotic syndrome with unspecified morphologic changes; N06.1 Isolated proteinuria with focal and segmental glomerular lesions; T86.19 Other complication of kidney transplant; Z94.0 Kidney transplant status
CPT/HCPCS: 96365; 96366; J1459; J7060

== ENCOUNTER 2021-07-13 12:06 | Outpatient (CLI) | payer BC, SELFPAY ==
[2021-07-13] VITALS (9 sets, daily range): BP systolic 113–132; BP diastolic 68–87; PULSE 74–83; RESP 16
== END 2021-07-13 15:05 | disposition home or self-care (01) ==
LOC: INF 12:06
PROVIDERS: Visit Provider Internal Medicine
DX: N05.1 Unspecified nephritic syndrome with focal and segmental glomerular lesions (principal); N04.9 Nephrotic syndrome with unspecified morphologic changes; N06.1 Isolated proteinuria with focal and segmental glomerular lesions; Z94.0 Kidney transplant status
CPT/HCPCS: 96365; 96366; J1459; J7060

== ENCOUNTER 2021-07-20 12:33 | Outpatient (CLI) | payer BC, SELFPAY ==
[2021-07-20] VITALS (9 sets, daily range): BP systolic 128–147; BP diastolic 56–84; PULSE 57–73; RESP 16
== END 2021-07-20 15:40 | disposition home or self-care (01) ==
LOC: INF 12:33
PROVIDERS: Visit Provider Internal Medicine
DX: T86.19 Other complication of kidney transplant (principal); N05.1 Unspecified nephritic syndrome with focal and segmental glomerular lesions; N04.9 Nephrotic syndrome with unspecified morphologic changes; N06.1 Isolated proteinuria with focal and segmental glomerular lesions; Z94.0 Kidney transplant status
CPT/HCPCS: 96365; 96366; J1459; J7060

== ENCOUNTER 2021-07-27 11:59 | Outpatient (CLI) | payer BC, SELFPAY ==
[2021-07-27 12:40] VITALS: BP 120/66; PULSE 71; RESP 18; TEMP 36.7; O2SAT 99
[2021-07-27 13:10] VITALS: BP 122/68; PULSE 62; RESP 18
[2021-07-27 13:40] VITALS: BP 127/63; PULSE 61; RESP 18
[2021-07-27 14:10] VITALS: BP 137/69; PULSE 68; RESP 18
[2021-07-27 14:30] VITALS: BP 135/63; PULSE 62; RESP 18
[2021-07-27 14:50] VITALS: BP 128/79; PULSE 80; RESP 18
== END 2021-07-27 14:50 | disposition home or self-care (01) ==
LOC: INF 12:00
PROVIDERS: PCP Family Medicine; Visit Provider Internal Medicine
DX: T86.19 Other complication of kidney transplant (principal); N05.1 Unspecified nephritic syndrome with focal and segmental glomerular lesions; N04.9 Nephrotic syndrome with unspecified morphologic changes; N06.1 Isolated proteinuria with focal and segmental glomerular lesions; Z94.0 Kidney transplant status
CPT/HCPCS: 96365; 96366; J1459; J7060

== ENCOUNTER 2021-08-02 11:49 | Outpatient (CLI) | payer BC, SELFPAY ==
[2021-08-02] VITALS (7 sets, daily range): BP systolic 118–134; BP diastolic 59–85; PULSE 79–98; RESP 16–18; TEMP 36.6; O2SAT 99–100
== END 2021-08-02 14:20 | disposition home or self-care (01) ==
PROVIDERS: PCP Family Medicine; Visit Provider Internal Medicine
DX: N05.1 Unspecified nephritic syndrome with focal and segmental glomerular lesions (principal); N04.9 Nephrotic syndrome with unspecified morphologic changes; N06.1 Isolated proteinuria with focal and segmental glomerular lesions; Z94.0 Kidney transplant status
CPT/HCPCS: 96365; 96366; J1459; J7060

== ENCOUNTER 2021-08-17 12:37 | Outpatient (CLI) | payer BC, SELFPAY ==
[2021-08-17] VITALS (7 sets, daily range): BP systolic 138–165; BP diastolic 63–91; PULSE 70–78; RESP 18; O2SAT 99
== END 2021-08-17 13:13 | disposition home or self-care (01) ==
LOC: INF 12:37
PROVIDERS: Visit Provider Internal Medicine
DX: N05.1 Unspecified nephritic syndrome with focal and segmental glomerular lesions (principal); N04.9 Nephrotic syndrome with unspecified morphologic changes; N06.1 Isolated proteinuria with focal and segmental glomerular lesions; Z94.0 Kidney transplant status
CPT/HCPCS: 96365; 96366; J1459; J7060

== ENCOUNTER 2021-08-24 11:44 | Outpatient (CLI) | payer BC, SELFPAY ==
[2021-08-24] VITALS (9 sets, daily range): BP systolic 147–179; BP diastolic 79–106; PULSE 62–81; RESP 18; O2SAT 97
== END 2021-08-24 14:23 | disposition home or self-care (01) ==
LOC: INF 11:44
PROVIDERS: Visit Provider Internal Medicine
DX: N05.1 Unspecified nephritic syndrome with focal and segmental glomerular lesions (principal); N04.9 Nephrotic syndrome with unspecified morphologic changes; M06.1 Adult-onset Still's disease; Z94.0 Kidney transplant status
CPT/HCPCS: 96365; 96366; J1459; J7060

== ENCOUNTER 2021-08-31 11:53 | Outpatient (CLI) | payer BC, SELFPAY ==
[2021-08-31 12:35] VITALS: BP 115/76; PULSE 67; RESP 18; O2SAT 97
[2021-08-31 13:05] VITALS: BP 130/76; PULSE 58; RESP 16
[2021-08-31 13:35] VITALS: BP 120/73; PULSE 67; RESP 16
[2021-08-31 14:05] VITALS: BP 123/70; PULSE 60; RESP 16
[2021-08-31 14:35] VITALS: BP 133/71; PULSE 68; RESP 16
[2021-08-31 14:45] VITALS: BP 127/75; PULSE 71; RESP 16
== END 2021-08-31 14:50 | disposition home or self-care (01) ==
LOC: INF 11:53
PROVIDERS: Visit Provider Internal Medicine
DX: T86.19 Other complication of kidney transplant (principal); N05.1 Unspecified nephritic syndrome with focal and segmental glomerular lesions; N04.9 Nephrotic syndrome with unspecified morphologic changes; N06.1 Isolated proteinuria with focal and segmental glomerular lesions
CPT/HCPCS: 96365; 96366; J1459; J7060

== ENCOUNTER 2021-09-07 12:21 | Outpatient (CLI) | payer BC, SELFPAY ==
[2021-09-07 13:05] VITALS: BP 120/74; PULSE 69; RESP 18; O2SAT 97
[2021-09-07 13:35] VITALS: BP 132/70; PULSE 62; RESP 16
[2021-09-07 14:05] VITALS: BP 141/70; PULSE 62; RESP 16
[2021-09-07 14:35] VITALS: BP 140/67; PULSE 62; RESP 16
[2021-09-07 15:05] VITALS: BP 135/77; PULSE 75; RESP 16
== END 2021-09-07 15:10 | disposition home or self-care (01) ==
LOC: INF 12:21
PROVIDERS: Visit Provider Internal Medicine
DX: T86.19 Other complication of kidney transplant (principal); N05.1 Unspecified nephritic syndrome with focal and segmental glomerular lesions; N04.9 Nephrotic syndrome with unspecified morphologic changes; N06.1 Isolated proteinuria with focal and segmental glomerular lesions; Z94.0 Kidney transplant status
CPT/HCPCS: 96365; 96366; J1459; J7060

== ENCOUNTER 2021-09-14 11:59 | Outpatient (CLI) | payer BC, SELFPAY ==
[2021-09-14 12:50] VITALS: BP 119/66; PULSE 76; RESP 18; O2SAT 98
[2021-09-14 13:20] VITALS: BP 126/60; PULSE 76; RESP 16
[2021-09-14 13:50] VITALS: BP 117/62; PULSE 62; RESP 16
[2021-09-14 14:20] VITALS: BP 127/66; PULSE 63; RESP 16
[2021-09-14 14:50] VITALS: BP 136/72; PULSE 72; RESP 18
== END 2021-09-14 14:45 | disposition home or self-care (01) ==
LOC: INF 11:59
PROVIDERS: PCP Family Medicine; Visit Provider Internal Medicine
DX: N05.1 Unspecified nephritic syndrome with focal and segmental glomerular lesions (principal); T86.19 Other complication of kidney transplant; N04.9 Nephrotic syndrome with unspecified morphologic changes; N06.1 Isolated proteinuria with focal and segmental glomerular lesions; Z94.0 Kidney transplant status
CPT/HCPCS: 96365; 96366; J1459; J7060

== ENCOUNTER 2021-09-21 12:26 | Outpatient (CLI) | payer BC, SELFPAY ==
[2021-09-21] VITALS (8 sets, daily range): BP systolic 123–148; BP diastolic 50–73; PULSE 71–82; RESP 18; O2SAT 99
== END 2021-09-21 15:05 | disposition home or self-care (01) ==
LOC: INF 12:27
PROVIDERS: Visit Provider Internal Medicine
DX: N05.1 Unspecified nephritic syndrome with focal and segmental glomerular lesions (principal); T86.19 Other complication of kidney transplant; N04.9 Nephrotic syndrome with unspecified morphologic changes; N06.1 Isolated proteinuria with focal and segmental glomerular lesions; Z94.0 Kidney transplant status
CPT/HCPCS: 96365; 96366; J1459; J7060

== ENCOUNTER 2021-10-05 11:55 | Outpatient (CLI) | payer BC, SELFPAY ==
[2021-10-05 12:45] VITALS: BP 118/86; PULSE 83; RESP 18; O2SAT 98
[2021-10-05 13:15] VITALS: BP 142/70; PULSE 64; RESP 16
[2021-10-05 13:45] VITALS: BP 140/73; PULSE 66; RESP 16
[2021-10-05 14:15] VITALS: BP 133/72; PULSE 66; RESP 16
[2021-10-05 14:45] VITALS: BP 138/75; PULSE 75; RESP 16
== END 2021-10-05 15:05 | disposition home or self-care (01) ==
LOC: INF 11:55
PROVIDERS: Visit Provider Internal Medicine
DX: N05.1 Unspecified nephritic syndrome with focal and segmental glomerular lesions (principal); N04.9 Nephrotic syndrome with unspecified morphologic changes; N06.1 Isolated proteinuria with focal and segmental glomerular lesions; T86.19 Other complication of kidney transplant; Z94.0 Kidney transplant status
CPT/HCPCS: 96365; 96366; J1459; J7060

== ENCOUNTER 2021-10-12 12:07 | Outpatient (CLI) | payer BC, SELFPAY ==
[2021-10-12 13:00] VITALS: BP 106/53; PULSE 67; RESP 16; O2SAT 98
[2021-10-12 13:30] VITALS: BP 104/55; PULSE 60; RESP 16
[2021-10-12 14:00] VITALS: BP 108/53; PULSE 65; RESP 16
[2021-10-12 14:30] VITALS: BP 110/59; PULSE 70; RESP 16
[2021-10-12 15:00] VITALS: BP 111/69; PULSE 71; RESP 16
== END 2021-10-12 14:55 | disposition home or self-care (01) ==
LOC: INF 12:07
PROVIDERS: Visit Provider Internal Medicine
DX: N05.1 Unspecified nephritic syndrome with focal and segmental glomerular lesions (principal); N05.9 Unspecified nephritic syndrome with unspecified morphologic changes; N06.1 Isolated proteinuria with focal and segmental glomerular lesions; T86.19 Other complication of kidney transplant; Z94.0 Kidney transplant status
CPT/HCPCS: 96365; 96366; J1459; J7060

== ENCOUNTER 2021-10-19 12:03 | Outpatient (CLI) | payer BC, SELFPAY ==
[2021-10-19 12:55] VITALS: BP 123/68; PULSE 69; RESP 18; O2SAT 99
[2021-10-19 13:25] VITALS: BP 134/73; PULSE 67; RESP 16
[2021-10-19 13:55] VITALS: BP 125/71; PULSE 67; RESP 16
[2021-10-19 14:25] VITALS: BP 136/73; PULSE 75; RESP 16
[2021-10-19 14:55] VITALS: BP 130/70; PULSE 72; RESP 16
== END 2021-10-19 15:05 | disposition home or self-care (01) ==
LOC: INF 12:03
PROVIDERS: Visit Provider Internal Medicine
DX: N05.1 Unspecified nephritic syndrome with focal and segmental glomerular lesions (principal); T86.19 Other complication of kidney transplant; N04.9 Nephrotic syndrome with unspecified morphologic changes; N06.1 Isolated proteinuria with focal and segmental glomerular lesions; Z94.0 Kidney transplant status
CPT/HCPCS: 96365; 96366; J1459; J7060

== ENCOUNTER 2021-11-09 11:57 | Outpatient (CLI) | payer BC, SELFPAY ==
[2021-11-09 12:55] VITALS: BP 116/55; PULSE 76; RESP 16; O2SAT 95
[2021-11-09 13:55] VITALS: BP 125/62; PULSE 70; RESP 16
[2021-11-09 14:55] VITALS: BP 117/78; PULSE 81; RESP 16
== END 2021-11-09 15:02 | disposition home or self-care (01) ==
LOC: INF 11:57
PROVIDERS: Visit Provider Internal Medicine
DX: N05.1 Unspecified nephritic syndrome with focal and segmental glomerular lesions (principal); T86.19 Other complication of kidney transplant; N04.9 Nephrotic syndrome with unspecified morphologic changes; N06.1 Isolated proteinuria with focal and segmental glomerular lesions; Z94.0 Kidney transplant status
CPT/HCPCS: 96365; 96366; J1459; J7060

== ENCOUNTER 2021-12-13 09:03 | Emergency (ER) | payer BC, SELFPAY ==
[2021-12-13 09:10] VITALS: BP 141/90; PULSE 102; RESP 18; TEMP 37.1; O2SAT 98; BMI 24.7
--- NOTE | 2021-12-13 09:19 | EXP.UTC ---
Discharge Plan Disposition Patient Disposition: Home, Self-Care Condition: Good Prescriptions Prescriptions: New methylprednisolone [Medrol (Ronen)] 4 mg tablets,dose pack See Rx Instructions .Route .COMPLEX 6 Days Qty: 21 0RF Rx Instructions: taper pack; amoxicillin-pot clavulanate 875-125 mg Tablet 1 tab PO Q12H Qty: 20 0RF No Action polysaccharide iron complex [Ferrex 150] 150 mg iron capsule 150 mg PO DAILY Rx Instructions: avoid dairy/calcium-containing products and/or antacids for at least 2 hrs before and after dose folic acid 1 mg tablet 1 mg PO DAILY Cerovite Advanced Formula 18-400 mg-mcg tablet 1 tab PO DAILY prednisone 20 mg tablet 5 mg PO DAILY Envarsus XR 1 mg tablet extended release 24 hr 2 mg PO DAILY Rx Instructions: must be taken on empty stomach mycophenolate sodium 180 mg tablet,delayed release (DR/EC) 360 mg PO BID aspirin [Adult Aspirin Regimen] 81 mg tablet,delayed release (DR/EC) 81 mg PO QDAY omeprazole 40 mg capsule,delayed release(DR/EC) 40 mg PO DAILY nitroglycerin 0.4 mg tablet, sublingual 0.4 mg SUBLINGUAL Q5M PRN (Reason: Chest Pain) Qty: 30 5RF atorvastatin 80 mg tablet 80 mg PO QDAY Qty: 30 5RF lisinopril 40 mg tablet 40 mg PO DAILY ezetimibe 10 mg tablet 10 mg PO QDAY Qty: 30 5RF metoprolol succinate 25 mg tablet extended release 24 hr 25 mg PO DAILY Qty: 90 1RF ticagrelor 90 mg tablet 90 mg PO BID Qty: 180 3RF magnesium chloride 64 MG tablet,delayed release (DR/EC) 2 tab PO TID benzonatate 100 MG capsule 100 mg PO TIDP PRN (Reason: Cough) Qty: 30 0RF ondansetron 4 MG tablet,disintegrating 4 mg PO Q8HP PRN (Reason: Nausea) Qty: 20 0RF Referrals Follow up/Referrals: Marybel Eaton MD [Primary Care Provider] - See instructions Activity Restrictions/Add. Instructions Additional Instructions/Restrictions: *Monitor Temp, Over the counter Motrin or Tylenol as directed/as needed Tylenol every 4 hours and Motrin every 6 hours (as long as your family doctor has told you that you can take it) for fever or pain. and straight to ER if unable to lower temp less than 101.0 after medication given *Warm salt water gargles may help to soothe the throat *Throat Lozenges? *Warm fluids like tea with honey may help to soothe the throat? *Sleep elevated *Humidifier/Vaporizer Take medication as prescribed Follow up IMMEDIATELY for new or worsening symptoms or no Noticeable improvement over the next 48-72 hours. 911 for difficulty breathing or swallowing Clinical Impressions Clinical Impression: Otitis media, Sinusitis Instructions Patient Instructions: DI for Sinusitis, Middle Ear Infection Discharge ED Provider: Elvia Finley [facility] – [place] HPI General Stated complaint: LT ear pain w/ ringing, sinus pain Time Seen by Provider: 12/13/21 09:19 Description of Symptoms (Recalled from Triage Doc. by RN): Patient states kelton the has been having sinus pain and pressure along with pain and pressure in his left ear with ringing States that last night he had low grade fever and today his ear was hurting worse so he came in State that he did home COVID test 2 days ago and it was negative Related Data Home Medications Medication Instructions Recorded Confirmed aspirin 81 mg tablet,delayed 81 mg PO QDAY Blood thinner 03/11/17 11/09/21 release (Adult Aspirin Regimen) omeprazole 40 mg capsule,delayed 40 mg PO DAILY GERD 07/09/17 11/09/21 release folic acid 1 mg tablet 1 mg PO DAILY Supplement 12/21/19 11/09/21 multivitamin-ferrous 1 tab PO DAILY Supplement 12/21/19 11/09/21 fumarate-folic acid 18 mg-400 mcg tablet (Cerovite Advanced Formula) polysaccharide iron complex 150 mg 150 mg PO DAILY Supplement 12/21/19 11/09/21 iron capsule (Ferrex) lisinopril 40 mg tablet 40 mg PO DAILY htn 07/04/20 11/09/21 prednisone 20 mg tablet 5
[2021-12-13 09:32] LABS: Adenovirus,PCR Not Detected (NotDetected); Bordetella Pertussis Not Detected (NotDetected); Chlamydophila Pneumoniae, PCR Not Detected (NotDetected); Coronavirus 19, PCR Not Detected (NotDetected); Coronavirus 229E Not Detected (NotDetected); Coronavirus NL63 Not Detected (NotDetected); Coronavirus OC43 Not Detected (NotDetected); Coronovirus HKU1,PCR Not Detected (NotDetected); Human Metapneumovirus Not Detected (NotDetected); Influenza A, PCR Not Detected (NotDetected); Influenza AH1, 2009 Not Detected (NotDetected); Influenza AH1, PCR Not Detected (NotDetected); Influenza AH3,PCR Not Detected (NotDetected); Influenza B, PCR Not Detected (NotDetected); Mycoplasma Pneumoniae, PCR Not Detected (NotDetected); Parainfluenza 1, PCR Not Detected (NotDetected); Parainfluenza 2, PCR Not Detected (NotDetected); Parainfluenza 3, PCR Not Detected (NotDetected); Parainfluenza 4, PCR Not Detected (NotDetected); Respiratory Syncytial Virus Not Detected (NotDetected); Rhinovirus/Enterovirus Not Detected (NotDetected)
[2021-12-13 09:36] LABS: UTC Influenza A Antigen Negative (Negative); UTC Influenza B Antigen Negative (Negative)
[2021-12-13 09:40] VITALS: BP 141/90; PULSE 102; RESP 18; TEMP 37.1; O2SAT 98
== END 2021-12-13 09:44 | disposition home or self-care (01) ==
PROVIDERS: Emergency Provider Nurse Practitioner; PCP Family Medicine
DX: H66.90 Otitis media, unspecified, unspecified ear (principal); J32.9 Chronic sinusitis, unspecified
CPT/HCPCS: 87581; 87632; 87798; 87804; 99212; C9803; G0463; U0003; U0005

== ENCOUNTER 2022-05-29 15:20 | Emergency (ER) | payer BC, SELFPAY ==
[2022-05-29 15:42] VITALS: BP 131/84; PULSE 94; RESP 14; TEMP 37.4; O2SAT 100; BMI 29.5
--- NOTE | 2022-05-29 15:42 | EXP.UTC ---
Discharge Plan Disposition Patient Disposition: Home, Self-Care Condition: Good Prescriptions Prescriptions: New amoxicillin 500 mg capsule 500 mg PO BID 10 Days Qty: 20 0RF No Action polysaccharide iron complex [Ferrex 150] 150 mg iron capsule 150 mg PO DAILY Rx Instructions: avoid dairy/calcium-containing products and/or antacids for at least 2 hrs before and after dose folic acid 1 mg tablet 1 mg PO DAILY Cerovite Advanced Formula 18-400 mg-mcg tablet 1 tab PO DAILY prednisone 20 mg tablet 5 mg PO DAILY Envarsus XR 1 mg tablet extended release 24 hr 2 mg PO DAILY Rx Instructions: must be taken on empty stomach mycophenolate sodium 180 mg tablet,delayed release (DR/EC) 360 mg PO BID aspirin [Adult Aspirin Regimen] 81 mg tablet,delayed release (DR/EC) 81 mg PO QDAY omeprazole 40 mg capsule,delayed release(DR/EC) 40 mg PO DAILY nitroglycerin 0.4 mg tablet, sublingual 0.4 mg SUBLINGUAL Q5M PRN (Reason: Chest Pain) Qty: 30 5RF atorvastatin 80 mg tablet 80 mg PO QDAY Qty: 30 5RF lisinopril 40 mg tablet 40 mg PO DAILY ezetimibe 10 mg tablet 10 mg PO QDAY Qty: 30 5RF metoprolol succinate 25 mg tablet extended release 24 hr 25 mg PO DAILY Qty: 90 1RF ticagrelor 90 mg tablet 90 mg PO BID Qty: 180 3RF magnesium chloride 64 MG tablet,delayed release (DR/EC) 2 tab PO TID methylprednisolone [Medrol (Ronen)] 4 mg tablets,dose pack See Rx Instructions .Route .COMPLEX 6 Days Qty: 21 0RF Rx Instructions: taper pack; amoxicillin-pot clavulanate 875-125 mg Tablet 1 tab PO Q12H Qty: 20 0RF benzonatate 100 MG capsule 100 mg PO TIDP PRN (Reason: Cough) Qty: 30 0RF ondansetron 4 MG tablet,disintegrating 4 mg PO Q8HP PRN (Reason: Nausea) Qty: 20 0RF Referrals Follow up/Referrals: Marybel Eaton MD [Primary Care Provider] - See instructions Activity Restrictions/Add. Instructions Additional Instructions/Restrictions: *Monitor Temp, Over the counter Motrin or Tylenol as directed/as needed Tylenol every 4 hours and Motrin every 6 hours (as long as your family doctor has told you that you can take it) for fever or pain. and straight to ER if unable to lower temp less than 101.0 after medication given *Warm salt water gargles may help to soothe the throat *Throat Lozenges? *Warm fluids like tea with honey may help to soothe the throat? *Sleep elevated *Humidifier/Vaporizer *Flonase 2 sprays in each nostril daily but be aware that it may take 2-3 days before you notice improvement *Bromfed may cause drowsiness. Know how it effects you (your child) before driving, caring for small child, or sending your child to school. Not other antihistamines/allergy medications while taking bromfed Your throat swab was sent for culture. Those results are typically sent to your primary care. Be sure to follow up in 2-3 days with your family doctor/primary care physician if no improvement so they can review those result and treat if necessary. If you don?t have a primary care doctor, I recommend you get one but in the mean time, you will have to return to a walk in clinic Follow up IMMEDIATELY for new or worsening symptoms or no Noticeable improvement over the next 48-72 hours. 911 for difficulty breathing or swallowing Clinical Impressions Clinical Impression: Pharyngitis Qualifiers: Pharyngitis/tonsillitis etiology: unspecified etiology Qualified Code(s): J02.9 - Acute pharyngitis, unspecified Instructions Patient Instructions: Sore Throat [place]charge ED Provider: Elvia [place] [facility] [place] General Stated complaint: body aches, ROSE elvin Time Seen by Provider: 05/29/22 15:42 History of Present Illness Provider Complaint: Patient states that his child had strep throat States that now he started having sore throat, bodyaches and some chills here and there States that this evening his t
[2022-05-29 15:50] LABS: UTC Influenza A Antigen Negative (Negative); UTC Strep Screen (Rapid) Negative (Negative)
[2022-05-29 15:51] LABS: UTC Influenza B Antigen Negative (Negative)
[2022-05-29 15:52] VITALS: BP 131/84; PULSE 94; RESP 14; TEMP 37.4; O2SAT 100
== END 2022-05-29 16:11 | disposition home or self-care (01) ==
PROVIDERS: Emergency Provider Nurse Practitioner; PCP Family Medicine
DX: J02.9 Acute pharyngitis, unspecified (principal); R51.9 Headache, unspecified; Z94.0 Kidney transplant status
CPT/HCPCS: 87804; 87880; 99212; 99214; G0463